=== PATIENT | female | born 1965 ===

== ENCOUNTER 2018-05-11 19:10 | Emergency (ER) | payer OTHER ==
[2018-05-11 19:40] VITALS: BP 131/92; PULSE 79; RESP 22; TEMP 98; O2SAT 99
--- NOTE | 2018-05-11 20:09 | C.PDOC ---
History Of Present Illness The patient is a 53 year old female who has been experiencing chronic right knee pain over the past 6 years after she sustained an injury to the area. Patient notes increased pain, some swelling worse with ambulation over the past 3 days, and presents to the ED for further evaluation. Pt denies fever, chills, recent injury/trauma, denies skin changes to Right knee, obvious deformities, sensorivascular deficits to Right leg, denies calf pain.Ambulatory with stabl egait, not in any apparent distress Time Seen by Provider: 05/11/18 19:59 Chief Complaint (Nursing): Lower Extremity Problem/Injury History Per: Patient History/Exam Limitations: no limitations Onset/Duration Of Symptoms: Days (3) Current Symptoms Are (Timing): Still Present Additional History Per: Patient - Knee Description Of Injury: denies: Fell, Struck With Object, Struck Against Object, Twisted Past Medical History Reviewed: Historical Data, Nursing Documentation, Vital Signs Vital Signs: Last Vital Signs Temp 98.0 F 05/11/18 19:36 Pulse 79 05/11/18 19:36 Resp 22 05/11/18 19:36 BP 131/92 H 05/11/18 19:36 Pulse Ox 99 05/11/18 19:36 - Medical History PMH: HTN Denies: Chronic Kidney Disease Surgical History: No Surg Hx Family History: States: [place], CAD - Social History Hx Tobacco Use: No Hx Alcohol Use: No Hx Substance Use: No - Immunization History Hx Tetanus Toxoid Vaccination: No Hx Influenza Vaccination: No Hx Pneumococcal Vaccination: No Review Of Systems Constitutional: Negative for: Fever, Chills Musculoskeletal: Positive for: Other (right knee pain ) Neurological: Negative for: Weakness, Numbness Physical Exam - Physical Exam Appears: Well, Non-toxic, No Acute Distress Skin: Normal Color, Warm, No Rash, No Ecchymosis Extremity: Normal ROM (mild discomfort to Right knee flexion due to pain), Tenderness (superior/lateral aspect Right knee with mild edema. No erythema, no palpable deformity), No Pedal Edema, No Calf Tenderness (Right), No Deformity Pulses: Right Dorsalis Pedis: Normal DTR: Knee (R): 2+, Ankle (R): 2+ Neurological/Psych: Oriented x3, Normal Speech ED Course And Treatment O2 Sat by Pulse Oximetry: 99 (on RA ) Pulse Ox Interpretation: Normal Progress Note: Right knee XR ordered and reviewed. Prednisone PO and Tramadol PO given. On re-eval, pt is afebrile, hemodyamicaly stable. Non-toxic. ambulatory with stable gait. Right knee; mild tenderness over anterior knee. FAROM, no neurovascular deficits, no skin changes. Imaging review (-) acute abnormalities. Pt advised. ref. to F/u with Ortho in 2-3 days for re-eval. return if any new changes. Disposition Counseled Patient/Family Regarding: Studies Performed, Diagnosis, Need For Followup, Rx Given - Disposition Referrals: [facility] [Outside] Disposition: HOME/ ROUTINE Disposition Time: 20:45 Condition: STABLE Additional Instructions: Take medication as prescribed Knee brace for 1-2 weeks Follow up with Orthopedist in2 -3 days for re-evaluation. return to ED if any worsening or new changes. Prescriptions: Prednisone [Deltasone] 40 mg PO DAILY #8 tablet traMADol [Ultram] 50 mg PO TID #7 tab Instructions: Chronic Knee Pain Forms: [employer] (Nicaraguan) Print Language: ROMANIAN - Clinical Impression Clinical Impression: Arthralgia of knee - PA / [employer] / Resident Statement MD/DO has reviewed & agrees with the documentation as recorded. - Scribe Statement The provider has reviewed the documentation as recorded by the Scribe All medical record entries made by the Scribe were at my direction and personally dictated by me. I have reviewed the chart and agree that the record accurately reflects my personal performance of the history, physical exam, medical decision making, and the department course for this patient. I have also personally directed, reviewed, and agree with the discharge instructions and disposition.
--- NOTE | 2018-05-12 10:37 | RAD ---
Date of service: 05/11/2018 PROCEDURE: Right Knee Radiographs. HISTORY: pain COMPARISON: None. FINDINGS: BONES: Normal. No fracture. JOINTS: Normal. No osteoarthritis. JOINT EFFUSION: There is a moderate joint effusion present. Uncertain significance. OTHER FINDINGS: None. IMPRESSION: Moderate effusion. No acute fracture.
== END 2018-05-11 21:55 | disposition home or self-care (01) ==
LOC: C.ER 19:10
DX: M25.561 Pain in right knee (principal); I10 Essential (primary) hypertension